=== PATIENT | female | born 1985 | race Caucasian/White ===

== ENCOUNTER 2017-01-06 05:57 | Day surgery (SDC) | payer OTHER ==
[~2017-01-06] VITALS: Ht 175.3 cm; Wt 70.9 kg
[2017-01-06] VITALS (8 sets, daily range): BP systolic 120–149; BP diastolic 79–91; PULSE 100–115; RESP 12–26; O2SAT 97–100
[~2017-01-06 05:57] MED LIST: ALLERCLEAR; FERR325C PO; HYDR25TA4 PO; IBUP-1827 PO; LEVO88TA4 PO; OMEP40CA36 PO
[2017-01-06] MEDS ORDERED: Dexamethasone 4 mg/mL Inj ONE (05:58)
[2017-01-06] MEDS ORDERED: Ondansetron 2 mg/mL 2 mL Inj ONE (05:58)
[2017-01-06] MEDS ORDERED: Propofol 10,000 mCg/mL 20 mL Inj ONE (05:58)
[2017-01-06] MEDS ORDERED: Neostigmine 1 mg/mL 10 mL Inj ONE (05:58)
[2017-01-06] MEDS ORDERED: Glycopyrrolate 0.2 MG/ML 1mL Inj ONE (05:58)
[2017-01-06] MEDS ORDERED: MetoCLOpramide 5 mg/mL 2 mL Inj ONE (05:58)
[2017-01-06] MEDS ORDERED: HYDROmorphone 1 mg/mL Inj ONE (05:58)
[2017-01-06] MEDS ORDERED: fentaNYL-PF 50 mCg/mL 2 mL Inj ONE (05:58)
[2017-01-06] MEDS ORDERED: Succinylcholine Chloride 20 mg/mL 5 mL Inj ONE (05:58)
[2017-01-06] MEDS ORDERED: Rocuronium 10 mg/mL 5 mL Inj ONE (05:58)
[2017-01-06] MEDS ORDERED: CeFAZolin 2 Gm/50 mL D5W IV Premix IV ONE (06:00)
[2017-01-06] MEDS: Lactated Ringer's 1,000 ML IV SCH ×2 (06:18→07:30)
[2017-01-06] MEDS ORDERED: hydrOXYzine Inj 50 MG/1 mL SDV IM ONE (07:27)
[2017-01-06] MEDS ORDERED: EPHEDrine Sulfate 50 mg/mL Inj ONE (07:27)
[2017-01-06] MEDS ORDERED: Famotidine 20 mg/50 mL NS Premix IV ONE (07:28)
[2017-01-06] MEDS ORDERED: Bupivacaine-MPF 0.5% W/EPI 30 mL Inj INFILTRATE ONE (07:30)
[2017-01-06] MEDS ORDERED: Lactated Ringer's 1,000 ML IV SCH (09:43)
[2017-01-06] MEDS ORDERED: Lactated Ringer's 500 ML IV PRN (09:43)
[2017-01-06] MEDS ORDERED: Labetalol 5 mg/mL 4 mL Inj IV PRN (09:45)
[2017-01-06] MEDS ORDERED: EPHEDrine Sulfate 50 mg/mL Inj IVPUSH PRN (09:45)
[2017-01-06] MEDS ORDERED: Phenylephrine 10,000 mCg/mL Inj IVPUSH PRN (09:45)
[2017-01-06] MEDS ORDERED: fentaNYL-PF 50 mCg/mL 2 mL Inj IVPUSH PRN (09:45)
--- NOTE | 2017-01-06 10:19 | OP ---
[address] [address] OPERATIVE REPORT PATIENT: NICHOLAS OLVERA : 1985 MR#: [id number] ADMIT: 01/06/2017 JOB ID: [id number] DATE OF SURGERY: 01/06/2017 PLASTIC SURGERY OPERATIVE REPORT: PREOPERATIVE DIAGNOSIS(ES): Right breast mass. POSTOPERATIVE DIAGNOSIS(ES): Right breast mass. PROCEDURE PERFORMED: Excisional biopsy of right breast mass. SURGEON: Keegan Page M.D. ASSISTANTS: None. ANESTHESIA: General anesthesia with laryngeal mask airway. ANESTHESIA PROVIDER: Rickey Zavala M.D. INDICATIONS: This is a pleasant 31-year-old female with a previous history of bilateral nipple sparing mastectomy and staged implant reconstruction who presented with a small mass adjacent to the right areola. Ultrasound of this area indicated a soft tissue mass, possibly consistent with fibroadenoma and she presents today for elective excisional biopsy. FINDINGS: The mass was clearly a thickened portion of the implant capsule. It was likely a portion/corner of the previous acellular dermal matrix that had been used in her reconstruction. There were no abnormalities. There is no true mass noted. COMPLICATIONS: None. ESTIMATED BLOOD LOSS: Minimal. DRAINS: None. SPECIMENS: Right breast mass. FLUIDS: 700 cc crystalloid. INFORMED CONSENT: I had a thorough discussion with the patient prior to surgery about the risks, benefits and alternatives to the procedure. In terms of risks, we specifically discussed bleeding, infection, damage to adjacent structures, need for further procedure, scar, pain, undesired cosmesis, heart attack, stroke or . Despite these risks, she agreed to proceed as planned and signed written surgical consent. DESCRIPTION OF PROCEDURE: After informed consent was obtained and verified, the patient was brought to the operating theater, positioned supine upon the operating table. She then had induction of general anesthesia and placement of a laryngeal mask airway. Sequential compression devices were in place and functioning prior to induction. The arms were abducted 80 degrees and secured to padded arm boards using cast padding. The chest was then prepped and draped in a standard sterile surgical fashion using a ChloraPrep solution. Preoperative verification and checklist was then done by the surgical team according to protocol. I began by marking a 2.5 cm curvilinear incision along the inferomedial aspect of the areolar border. This area was then infiltrated with 0.5% bupivacaine with epinephrine. An incision was then made with a #15 scalpel through the skin and into the subcutaneous tissues. Careful dissection was done with cautery down to the level of the implant capsule. Metzenbaum scissors were then used to dissect above the implant capsule widely to identify the area of the "mass." Upon palpation, this appeared to be a thickened area where the AlloDerm was more prominent relative to the remainder of the implant capsule and did not represent a true mass. The prominent portion of the AlloDerm was excised and sent as a specimen. Careful palpation was then done to confirm that there were no further palpable areas within the surgical site, confirming the area of suspicion had been completely removed. The area was then copiously irrigated with sterile saline. Closure was then done in layers using 5-0 Monocryl in a deep buried fashion to approximate the deep subcutaneous tissues followed by 5-0 Monocryl in an interrupted deep dermal and a running intradermal fashion to approximate the skin. Dressings were done which included topical skin adhesive, Mastisol, Steri-Strips, Telfa, and a small Tegaderm. The patient tolerated the procedure well and no complications were noted. Sponge, needle, and instrument counts correct at the end of the case. Postoperative debriefing was done according to protocol. DISPOSITION: The patient was successfully extubated and taken to postanesthesia recovery area with normal stable vital signs. PLAN: The patient will followup in clinic in two weeks' time for routine postoperative assessment.
--- NOTE | 2017-01-06 14:20 | PCM.HPANE ---
Patient Data Surgeon Admitting Provider: Attending Provider:Keegan Page MD Primary Care Physician:Bonny Salas ARNP Other Provider:Ruby Hamiltoningham Anesthesia Reason for Visit Right Breast Lump Ht/WT & BMI Height (Feet): 5 Height (Inches): 9.00 Weight (Kilograms): 70.900 Body Mass Index 23.00 Allergies Coded Allergies: Potassium Clavulanate (Verified Allergy, Severe, RASH,GI UPSET, 06/27/13) amoxicillin trihydrate (Verified Allergy, Severe, RASH,GI UPSET (CAN TAKE CEPHALOSPORINS), 06/27/13) azithromycin (Verified Allergy, Severe, TENDONITIS,COLITIS-TYPE SX, ) dicyclomine (Verified Allergy, Severe, GI UPSET, 06/27/13) levofloxacin (Verified Allergy, Severe, TENDONITIS, 06/27/13) sulfamethoxazole (Verified Allergy, Severe, RT FACIAL DROOP, 06/27/13) tramadol (Verified Allergy, Severe, RASH, 06/27/13) trimethoprim (Verified Allergy, Severe, RT FACIAL DROOP, 06/27/13) Past Anesthesia History Anesthesia History: Denies:: Abnormal Airway, Anesthesia Reactions, Difficult Intubation, Fam Anesthesia Reaction, Fam Malignant Hypertherm, Malignant Hyperthermia Diabetes History Hx Diabetes?: No MRSA MRSA: No Medications Hypertension Medication: Yes Home Meds Incl Beta Reji: No Reported Medications Ibuprofen 600 Mg Rkovtz232 Mg PO QID PRN For Pain Ref 0 01/03/17 [allerclear] No Conflict Check1 Tab DAILY 01/03/17 Ferrous Sulfate (Iron)325 Mg Capsule.er325 Mg PO DAILY 01/03/17 Levothyroxine 88 Mcg Xaqlai10 Mcg PO DAILY Ref 0 01/03/17 Omeprazole 40 Mg Capsule.dr40 Mg PO DAILY Ref 0 01/03/17 Hydrochlorothiazide 25 Mg Yrsrpp65 Mg PO DAILY 30 Days Ref 0 01/03/17 Discontinued Reported Medications Omeprazole Magnesium (Omeprazole)20 Mg Capsule.dr40 Mg PO DAILY 30 Days Ref 0 08/12/14 History History of ENT Problems?: Yes HEENT History: Positive for:: Dysphagia (from prior thyroid) Sinus Problem Denies:: Abnormal Airway Cataracts Difficult Intubation Glaucoma Hearing Problem TMJ Denture Type: None Teeth Condition: Within Normal Limits Hx of Heart Problems?: Yes Cardiovascular History: Positive for:: Hypertension Denies:: AICD Abdominal Aortic Aneurism Atrial Fibrillation Cardiac Surgery Chest Pain Congestive Heart Failure Coronary Artery Disease Edema Heart Murmur Irregular Heartbeat Pacemaker Peripheral Vascular Rheumatic Fever Thrombophlebitis Valvular Heart Disease Hx of Respiratory Problem?: No Respiratory History: Denies:: Asthma COPD Chest Surgery Cough Dyspnea Emphysema Hemoptysis Oxygen Administration Pneumonia Pulmonary Embolism Tuberculosis Use of C-PAP Machine Use of Inhalers / NEBS Hx Neurologic Problems?: Yes Neurological History: Positive for:: Headaches (headaches ) Denies:: Alzheimer's Disease CVA Dementia Dizziness Multiple Sclerosis Parkinson's Disease Peripheral Neuropathy Seizures TIA Hx of GI Problems?: Yes Gastrointestinal History: Denies:: Cirrhosis Diverticulitis Gall Bladder Disease Gastroesphageal Reflux Gastrointestinal Bleeding Heartburn Hepatitis Hiatal Hernia Liver Disease Rectal Bleeding Hx of Problems?: No Genitourinary History: Denies:: HX of Hemodialysis Kidney Stones Urinary Tract Infection HX of Peritoneal Dialysis: No Female Hx: Positive for:: Problems with Breasts? (right breast current admission problem/ hx of dbl mast/reconstr) Denies:: Currently Endometriosis Pelvic Inflammatory Skin History: Denies:: History Skin Disorders? Pressure Ulcers Hx Musculoskeletal Problems?: Yes Musculoskeletal History: Positive for:: Back Injury (chronic neck pain) Denies:: Degenerative Joint Fibromyalgia Joint Replacement Musculoskeletal Trauma Myasthenia Gravis Osteoarthritis Rheumatoid Arthritis Systemic Lupus Hx of Psycho/Social Problems?: Yes Psycho Social History: Positive for:: Anxiety Hx Depression Denies:: Bipolar Disorder Suicide Attempt Hx Surgeries?: Yes (MULT BREAST BX'S,LT AXIL MASS EXC W/RECONSTRUCT,APPY,) Hx Any Other Health Problems?: Yes Other History: Denies:: Cancer Endocrine Disease Hospitalization Thyroid Disease History Blood Transfusions: Positive for:: Accept Blood Products? Denies:: Blood Transfuse Reaction Blood Transfusions Hx Diabetes: No Hx Alcohol Use: Yes (OCCAS)Hx Substance Use: NoHave You Smoked inLast 12 mo: No Stop/Bang S-Snoring: Do You Snore Loudly: No T-Tired: feel tired, fatigued: No O-Obsered: Observed not breath: No P-Blood Pressure: treated: Yes B- Body Mass Index > 35 kg/m2: No A- Age over 50: No N- Neck Large Circumference: No G- Gender Male: No RUT Total Score: 1 Risk Assessment Category Category 1A: Patient has history of documented sleep apnea, and HAS NOT received any narcotic, sedative or anesthesia administration during this stay. Category 1B: Patient has history of documented sleep apnea, and HAS received any narcotic , sedative or anesthesia administration during this stay Category 2: Patient has SUSPECTED Obstructive Sleep Apnea, and HAS received any narcotic , sedative or anesthesia administration during this stay. Category 3: Patient has SUSPECTED Obstructive Sleep Apnea and HAS NOT received narcotic, sedative or anesthesia administration during this stay. Category 4: Outpatient in Procedural Areas with known sleep apnea or who screen positive for High Risk via the STOP/BANG questionnaire. Exam Exam Vital Signs Vital Signs Date Time Temp Pulse Resp B/P Pulse Ox O2 Delivery O2 Flow Rate FiO2 01/06/17 06:22 36.6 115 12 120/79 98 Room Air General Appearance: Alert, Oriented X3, Cooperative, No Acute Distress HEENT/AIRWAY: MP 2, Neck Movement (FROM), Mouth Opening (3 FBMO) Lungs: Clear to Auscultation, Normal Air Movement Heart: Exam Unremarkable, Regular Rate/Rhythm, No Murmurs/Rubs/Gallops Meds/Labs/Diagnostics Admission Meds Current Medications Lactated Ringer's (Lr) 1,000 ml @ 120 mls/hr Q8H20M IV Last administered on t 06:18; Start 01/06/17 at 05:00; Stop 01/06/17 at 13:19 Plan Impression Patient chart reviewed, patient interviewed and anesthestic plan with risks, benefits, and alternatives discussed, and informed consent obtained. NPO per Anesth. Guidelines: Yes ASA Physical Status: ASA2 Mod Systemic Disease Anesthetic Plan: GA Bene/Risks/Altern/Consents: Yes HP Complete Prior to Induction: Yes Rickey Zavala MD Jan 06, 2017 07:29
--- NOTE | 2017-01-06 14:21 | PCM.ANEP1 ---
Post Anesthesia PACU Phase 1 Assessment Vital Signs Vital Signs Date Time Temp Pulse Resp B/P Pulse Ox O2 Delivery O2 Flow Rate FiO2 01/06/17 09:13 103 16 148/80 100 Room Air 01/06/17 09:00 36.6 108 26 142/86 100 Room Air 01/06/17 08:58 100 26 146/89 100 Room Air 01/06/17 08:51 106 14 148/85 97 Room Air 01/06/17 08:45 107 19 149/91 99 Room Air 01/06/17 08:40 114 19 136/85 100 Simple Mask 10 01/06/17 08:38 36.3 102 23 143/84 100 Simple Mask 10 01/06/17 06:22 36.6 115 12 120/79 98 Room Air Anesthetic Administered: GA Level of Alertness: Awake, talking RAMIREZ's with Equal Strength: Yes Pain: No Nausea or Vomiting: No CV Function & Hydration Stable: Yes Airway Device: N/A Oxygen Delivery: Room Air Lungs: Clear to Auscultation, Normal Air Movement Dermatome Level: Full Sensation PACU Phase 2 Assessment Complications: No Follow up Care: N/A Patient Instructions Provided: N/A Rickey Zavala MD Jan 06, 2017 14:21
--- NOTE | 2017-01-11 11:22 | PATH ---
SURGICAL PATHOLOGY Attending Physician:Keegan Page MD CASE STATUS: Signed Out PATIENT NAME: NICHOLAS OLVERA PID: [id number] : 1985 DATE COLLECTED:01/06/2017 15:55 SPECIMEN: Breast Margin CLINICAL HISTORY: RIGHT BREAST MASS HX BREAST CA 1. RIGHT BREAST CAPSULE FINAL DIAGNOSIS: Right Breast Capsule: Dense hyalinized fibrous scar tissue with minimal amount of breast tissue. Negative for malignancy and significant atypia. ICD10: Z85.3 GROSS DESCRIPTION: The specimen is received in one formalin filled container labeled with the patient's name, sublabeled "right breast capsule" and consists of a light winters-riley firm portion of tissue which measures 2.0 x 2.0 x 0.5 CM. The specimen is inked, serially sectioned into 6 pieces and entirely submitted in 2 cassettes. 01/06/2017 [facility] ICD-9 CODES: CPT CODES: 60235 Electronically Signed Out Jarod Uribe MD [facility] Pathology [facility] [address], [place] [address] Technical component performed at [facility], [facility] [address], [place], [address]
== END 2017-01-06 23:59 | disposition home or self-care (01) ==
LOC: SAS 05:57
PROVIDERS: ATTEND Plastic Surgery
DX: N63 Unspecified lump in breast (principal); Z90.13 Acquired absence of bilateral breasts and nipples; Z14.8 Genetic carrier of other disease; I10 Essential (primary) hypertension; F41.8 Other specified anxiety disorders
CPT/HCPCS: 19120; J0330; J0690; J1100; J1170; J2250; J2405; J2710; J2765; J3010; J3410; J3490; J7120